=== PATIENT | male | born 1995 | race Caucasian/White ===

== ENCOUNTER 2024-08-24 11:13 | Emergency (ER) | payer SELFPAY ==
[2024-08-24 11:16] VITALS: BP 135/75; PULSE 107; TEMP 36.9; O2SAT 97; BMI 34.7
--- NOTE | 2024-08-24 11:29 | ED_ITS ---
HPI HPI - General Adult General Chief complaint: Back Pain/Injury Stated complaint: BACK PAIN Time Seen by Provider: 08/24/24 11:21 Source: patient Mode of arrival: walk-in Limitations: no limitations History of Present Illness HPI narrative: 29-year-old male presents to the emergency department for pain in his back. He states he was in the shower and he twisted and it started hurting. He did not fall and nothing struck him in the back. It is worse in certain positions and its severe. Related Data Previous Rx's ?Medication ?Instructions ?Recorded acetaminophen 300 mg-codeine 30 mg 1 tab PO Q6H PRN pain 5 days #20 08/24/24 tablet tabs cyclobenzaprine 10 mg tablet 10 mg PO TID PRN muscle spasm #20 08/24/24 tabs ibuprofen 800 mg tablet 800 mg PO Q8H PRN pain #20 tabs 08/24/24 Allergies Allergy/AdvReac Type Severity Reaction Status Date / Time No Known Drug Allergies Allergy Verified 08/24/24 11:19 Opioid HPI Opioid Management Most Recent Opioid Data: No Data to Display Review of Systems ROS Narrative A ten point review of systems is negative except as noted above. PFSH PFSH Social History Little interest or pleasure in doing things: not at all Feeling down, depressed, or hopeless: not at all Exam Narrative Exam Narrative: Nurses note and vital signs reviewed and patient is not hypoxic. General: The patient appears in no apparent distress. Patient is sitting on the edge of the cart using his arms to support his weight. Skin: Warm, dry, no pallor noted. There is no rash noted. Head: Normocephalic, atraumatic Eye: Normal conjunctiva, no drainage Ears, Nose, Mouth, and Throat: oral mucosa is moist. Nares patent. Cardiovascular: Regular Rate and Rhythm Respiratory: Patient is in no distress, no accessory muscle use, lungs are clear to auscultation, no wheezing, rales or rhonchi Back: No bruise rash or abrasion focal area of tenderness to palpation GI: Soft and nontender Musculoskeletal: The patient has no evidence of calf tenderness, no pitting edema, symmetrical pulses noted bilaterally Neurological: A&O, normal speech; motor strength intact in his lower extremities Psychiatric: Cooperative Constitutional Vital Signs, click to edit/add: Last Vital Signs Temp 98.5 F 08/24/24 11:16 Pulse 107 H 08/24/24 11:16 Resp 18 08/24/24 11:16 BP 135/75 08/24/24 11:16 Pulse Ox 97 08/24/24 11:16 O2 Del Method Room Air 08/24/24 11:16 Course Vital Signs Vital signs: Vital Signs Temperature 98.5 F 08/24/24 11:16 Pulse Rate 107 H 08/24/24 11:16 Respiratory Rate 18 08/24/24 11:16 Blood Pressure 135/75 08/24/24 11:16 Pulse Oximetry 97 08/24/24 11:16 Oxygen Delivery Method Room Air 08/24/24 11:16 Temperature 98.5 F 08/24/24 11:16 Pulse Rate 107 H 08/24/24 11:16 Respiratory Rate 18 08/24/24 11:16 Blood Pressure 135/75 08/24/24 11:16 Pulse Oximetry 97 08/24/24 11:16 Oxygen Delivery Method Room Air 08/24/24 11:16 Medical Decision Making MDM Narrative Medical decision making narrative: My clinical impression is that he has muscle strain. X-rays are not indicated and the patient agrees. He was offered IM injections but adamantly does not want an injection. He was given oral Tylenol 3, Flexeril, and ibuprofen and prescribed the same. Treatment diagnosis and follow-up were discussed with the patient. I have no clinical suspicion of fracture or a kidney stone. Differential Diagnosis Differential Diagnosis: Muscle strain, kidney stone, fracture Discharge Plan Discharge Chief Complaint: Back Pain/Injury Clinical Impression: Strain of muscle at thorax level Patient Disposition: Home, Self-Care Time of Disposition Decision: 11:28 Condition: Good Mode of Transportation: Private Vehicle Prescriptions / Home Meds: New acetaminophen-codeine 300-30 mg tablet 1 tab PO Q6H PRN (Reason: pain) 5 Days Qty: 20 0RF cyclobenzaprine 10 mg tablet 10 mg PO TID PRN (Reason: muscle spasm) Qty: 20 0RF ibuprofen 800 mg tablet 800 mg PO Q8H PRN (Reason: pain) Qty: 20 0RF Print Language: Kinyarwanda Instructions: Muscle Strain (ED)
[2024-08-24] MEDS: ACETAMINOPHEN 300 MG/ 30 MG CODEINE TABLET 1 TAB PO (11:32)
[2024-08-24] MEDS: CYCLOBENZAPRINE HCL 10 MG TABLET PO (11:33)
[2024-08-24] MEDS: IBUPROFEN 400 MG TABLET 800 MG PO (11:33)
== END 2024-08-24 12:14 | disposition home or self-care (01) ==
PROVIDERS: Emergency Provider Emergency Medicine
DX: S29.012A Strain of muscle and tendon of back wall of thorax, initial encounter (principal); X50.1XXA Overexertion from prolonged static or awkward postures, initial encounter
CPT/HCPCS: 99283